=== PATIENT | male | born 1975 | race Caucasian/White ===

== ENCOUNTER 2020-10-28 14:39 | Emergency (ER) | payer OTHER ==
[2020-10-28 14:50] VITALS: BP 136/92; PULSE 89; RESP 18; TEMP 97.7
--- NOTE | 2020-10-28 15:39 | ED ---
Lower Extremity Injury HPI - General Chief Complaint: Extremity Injury, Lower Stated Complaint: Fall, L Ankle injury Source: patient, family, RN/MD, RN notes reviewed, old records reviewed Mode of arrival: wheelchair Limitations: no limitations - History of Present Illness Initial Comments: 45-year-old white male, alert and oriented 4 and well-appearing, presents to the emergency room with family member complaining of left ankle pain. Patient states that he was walking today and he missed a step rolling his ankle outward. Patient states that he was able to "walk it off" but about 1:30 became severe and unable to bear weight. Patient has a history of multiple orthopedic surgeries including right ankle and right knee and back fractures. Patient states did not take any medication prior to arrival. Patient is a smoker. He states that Motrin and Tylenol do not give him pain relief, he takes Percocet 10 for pain. MD Complaint: ankle injury (Left ankle and foot), foot injury -: hour(s) (6) Type of Injury: eversion Place: street/outdoors Severity scale (1-10): 8 Improves With: immobilization Worsens With: weight bearing Context: walking (Missed a step) Associated Symptoms: able to partially bear weight - Related Data Allergies Allergy/AdvReac Type Severity Reaction Status Date / Time No Known Allergies Allergy Verified 10/28/20 14:45 Review of Systems ROS Statement: Those systems with pertinent positive or pertinent negative responses have been documented in the HPI. ROS Other: All systems not noted in ROS Statement are negative. Past Medical History Additional Past Medical History / Comment(s): migraines, TBI, neck and back fx History of Any Multi-Drug Resistant Organisms: None Reported Past Surgical History: Orthopedic Surgery Additional Past Surgical History / Comment(s): R ankle, R knee x 2, L shoulder x2, Past Psychological History: Anxiety, Depression, PTSD Smoking Status: Current every day smoker Past Alcohol Use History: Occasional Past Drug Use History: Marijuana General Exam Limitations: no limitations General appearance: alert, in no apparent distress Head exam: Present: atraumatic, normocephalic, normal inspection Eye exam: Present: normal appearance, PERRL, EOMI. Absent: scleral icterus, conjunctival injection, periorbital swelling ENT exam: Present: normal exam, normal oropharynx, mucous membranes moist Neck exam: Present: normal inspection, full ROM. Absent: tenderness, meningismus, lymphadenopathy, thyromegaly Respiratory exam: Present: normal lung sounds bilaterally. Absent: respiratory distress, wheezes, rales, rhonchi, stridor, chest wall tenderness, accessory muscle use, decreased breath sounds, prolonged expiratory Cardiovascular Exam: Present: regular rate, normal rhythm, normal heart sounds. Absent: systolic murmur, diastolic murmur, rubs, gallop, clicks, JVD GI/Abdominal exam: Present: soft, normal bowel sounds. Absent: distended, tenderness, guarding, rebound, rigid Extremities exam: Present: normal inspection, normal capillary refill. Absent: pedal edema, calf tenderness Left Knee exam: Present: full ROM. Absent: tenderness Lower Leg exam: Present: full ROM. Absent: tenderness Ankle exam: Present: tenderness, swelling. Absent: full ROM, abrasion, laceration, ecchymosis, deformity, crepitus, dislocation, erythema Foot/Toe exam: Present: tenderness, tenderness at base of 5th metatarsal. Absent: swelling, abrasion, laceration, ecchymosis, deformity, crepitus, dislocation, erythema, puncture wound, calcaneal tenderness Neurovascular tendon exam: Present: no vascular compromise. Absent: pulse deficit, abnormal cap refill, extremity cold to touch, pallor, decreased fine/light touch, foot drop, peroneal nerve deficit Back exam: Present: normal inspection, full ROM. Absent: tenderness, CVA tenderness (R), CVA tenderness (L), muscle spasm, paraspinal tenderness, vertebral tenderness, rash noted Neurological exam: Present: alert, oriented X3, CN II-XII intact Psychiatric exam: Present: normal affect, normal mood Skin exam: Present: warm, dry, intact, normal color. Absent: rash, cyanosis, diaphoretic, erythema, petechiae, pallor, mottled Course Vital Signs 10/28/20 14:46 Temperature 97.7 F Pulse Rate 89 Respiratory 18 Rate Blood Pressure 136/92 O2 Sat by Pulse 100 Oximetry Medical Decision Making - Medical Decision Making X-ray of the left ankle foot shows no acute fracture or dislocation. Patient h as no pain over the Achilles tendon or with squeeze. He has good range of motion of the left knee. There is no evidence of bruising or tenderness to the midfoot. He'll be placed in an air cast and provided crutches and directed to follow up with his primary care doctor or orthopedics on Saturday. Disposition Clinical Impression: Left ankle sprain Disposition: HOME SELF-CARE Condition: Good Instructions (If sedation given, give patient instructions): Ankle Sprain (ED), Crutch Instructions (ED) Additional Instructions: Rest, ice, wear splint, and elevate well at home. Use crutches while having pain. Follow-up with your doctor on Saturday. Return to the emergency room with worsening pain, numbness or tingling. Is patient prescribed a controlled substance at d/c from ED?: No Referrals: Aysha Schroeder MD [Primary Care Provider] - 1-2 days Time of Disposition: 16:21
[2020-10-28] MEDS ORDERED: oxyCODONE-APAP 10-325MG 1 EACH TAB PO STA (16:00)
--- NOTE | 2020-10-28 16:00 | XR ---
EXAMINATION TYPE: XR ankle complete LT, XR foot complete LT DATE OF EXAM: 10/28/2020 CLINICAL HISTORY: Foot and ankle pain after fall TECHNIQUE: Frontal, lateral and oblique images of the left ankle are obtained. 3 views left foot COMPARISON: None. FINDINGS: There is no acute fracture/dislocation evident in the left ankle and foot. Calcaneal spur is present. IMPRESSION: There is no acute fracture or dislocation in the left foot or ankle.
== END 2020-10-28 16:32 | disposition home or self-care (01) ==
LOC: EC 14:39
DX: S93.402A Sprain of unspecified ligament of left ankle, initial encounter (principal); F32.9 Major depressive disorder, single episode, unspecified; G43.909 Migraine, unspecified, not intractable, without status migrainosus; F12.90 Cannabis use, unspecified, uncomplicated; F17.200 Nicotine dependence, unspecified, uncomplicated; X50.1XXA Overexertion from prolonged static or awkward postures, initial encounter; Y93.01 Activity, walking, marching and hiking
CPT/HCPCS: 99283